=== PATIENT | female | born 1975 | race Two or more races ===

== ENCOUNTER 2023-03-01 18:41 | Emergency (ER) | payer OTHER, SELFPAY ==
--- NOTE | ~2023-03-01 | XR_ITS ---
EXAMINATION: XR ANKLE, RIGHT XR ANKLE, LEFT XR FOOT, RIGHT XR FOOT, LEFT CLINICAL INFORMATION: Bilateral ankle and foot pain. Fracture. COMPARISON: None. TECHNIQUE: AP, lateral, and mortise views of the right and left ankle were obtained. AP, oblique, and lateral views of the right and left foot. FINDINGS: Right ankle: Distal fibular ORIF with lateral stabilization plate and fixation screws. Additional orthopedic screws through the medial malleolus. No hardware fracture. No perihardware lucency to suggest loosening or infection. Chronic, healed distal fibular and medial malleolar fractures. Tibiotalar joint space narrowing with subchondral sclerosis and subchondral cystic change. Prominent marginal osteophytes. Degenerative spurring at the dorsum of the talar head. No acute fracture or dislocation. No concerning lytic or blastic osseous lesion. Mild circumferential soft tissue swelling. Left ankle: No acute fracture or dislocation. The ankle mortise is maintained. No joint space narrowing or marginal osteophytes. No osseous erosion. Mild cervical ventral soft tissue swelling. Right foot: Possible healed distal third, fourth, and fifth metatarsal fractures. No acute fracture or dislocation. Moderate joint space narrowing with marginal osteophytes at the first metatarsophalangeal joint. No osseous erosion. No abnormal soft tissue calcification. Left foot: No acute fracture or dislocation. No joint space narrowing or marginal osteophytes. No osseous erosion. No abnormal soft tissue calcification. XR/XR ankle LT min 3V IMPRESSION: RIGHT ANKLE: Distal fibular and medial malleolar ORIF without evidence of hardware complication. Chronic, healed distal fibular and medial malleolar fractures. Moderate tibiotalar osteoarthritis. Mild circumferential soft tissue swelling. LEFT ANKLE: Mild circumferential soft tissue swelling without acute osseous abnormality. RIGHT FOOT: Possible healed distal third, fourth, and fifth metatarsal fractures. Moderate first metatarsophalangeal osteoarthritis. LEFT FOOT: No acute osseous abnormality.
--- NOTE | ~2023-03-01 | XR_ITS ---
EXAMINATION: XR ANKLE, RIGHT XR ANKLE, LEFT XR FOOT, RIGHT XR FOOT, LEFT CLINICAL INFORMATION: Bilateral ankle and foot pain. Fracture. COMPARISON: None. TECHNIQUE: AP, lateral, and mortise views of the right and left ankle were obtained. AP, oblique, and lateral views of the right and left foot. FINDINGS: Right ankle: Distal fibular ORIF with lateral stabilization plate and fixation screws. Additional orthopedic screws through the medial malleolus. No hardware fracture. No perihardware lucency to suggest loosening or infection. Chronic, healed distal fibular and medial malleolar fractures. Tibiotalar joint space narrowing with subchondral sclerosis and subchondral cystic change. Prominent marginal osteophytes. Degenerative spurring at the dorsum of the talar head. No acute fracture or dislocation. No concerning lytic or blastic osseous lesion. Mild circumferential soft tissue swelling. Left ankle: No acute fracture or dislocation. The ankle mortise is maintained. No joint space narrowing or marginal osteophytes. No osseous erosion. Mild cervical ventral soft tissue swelling. Right foot: Possible healed distal third, fourth, and fifth metatarsal fractures. No acute fracture or dislocation. Moderate joint space narrowing with marginal osteophytes at the first metatarsophalangeal joint. No osseous erosion. No abnormal soft tissue calcification. Left foot: No acute fracture or dislocation. No joint space narrowing or marginal osteophytes. No osseous erosion. No abnormal soft tissue calcification. XR/XR foot LT 2V IMPRESSION: RIGHT ANKLE: Distal fibular and medial malleolar ORIF without evidence of hardware complication. Chronic, healed distal fibular and medial malleolar fractures. Moderate tibiotalar osteoarthritis. Mild circumferential soft tissue swelling. LEFT ANKLE: Mild circumferential soft tissue swelling without acute osseous abnormality. RIGHT FOOT: Possible healed distal third, fourth, and fifth metatarsal fractures. Moderate first metatarsophalangeal osteoarthritis. LEFT FOOT: No acute osseous abnormality.
--- NOTE | ~2023-03-01 | XR_ITS ---
EXAMINATION: XR ANKLE, RIGHT XR ANKLE, LEFT XR FOOT, RIGHT XR FOOT, LEFT CLINICAL INFORMATION: Bilateral ankle and foot pain. Fracture. COMPARISON: None. TECHNIQUE: AP, lateral, and mortise views of the right and left ankle were obtained. AP, oblique, and lateral views of the right and left foot. FINDINGS: Right ankle: Distal fibular ORIF with lateral stabilization plate and fixation screws. Additional orthopedic screws through the medial malleolus. No hardware fracture. No perihardware lucency to suggest loosening or infection. Chronic, healed distal fibular and medial malleolar fractures. Tibiotalar joint space narrowing with subchondral sclerosis and subchondral cystic change. Prominent marginal osteophytes. Degenerative spurring at the dorsum of the talar head. No acute fracture or dislocation. No concerning lytic or blastic osseous lesion. Mild circumferential soft tissue swelling. Left ankle: No acute fracture or dislocation. The ankle mortise is maintained. No joint space narrowing or marginal osteophytes. No osseous erosion. Mild cervical ventral soft tissue swelling. Right foot: Possible healed distal third, fourth, and fifth metatarsal fractures. No acute fracture or dislocation. Moderate joint space narrowing with marginal osteophytes at the first metatarsophalangeal joint. No osseous erosion. No abnormal soft tissue calcification. Left foot: No acute fracture or dislocation. No joint space narrowing or marginal osteophytes. No osseous erosion. No abnormal soft tissue calcification. XR/XR ankle RT 2V IMPRESSION: RIGHT ANKLE: Distal fibular and medial malleolar ORIF without evidence of hardware complication. Chronic, healed distal fibular and medial malleolar fractures. Moderate tibiotalar osteoarthritis. Mild circumferential soft tissue swelling. LEFT ANKLE: Mild circumferential soft tissue swelling without acute osseous abnormality. RIGHT FOOT: Possible healed distal third, fourth, and fifth metatarsal fractures. Moderate first metatarsophalangeal osteoarthritis. LEFT FOOT: No acute osseous abnormality.
[2023-03-01 18:45] VITALS: BP 176/103; PULSE 90; RESP 18; TEMP 37.3; O2SAT 99; BMI 27.5
--- NOTE | 2023-03-01 18:49 | ED_ITS ---
HPI - General Adult General Chief complaint: Extremity Injury, Lower Stated complaint: bi lateral ankle pain, no injury, unable to walk Time Seen by Provider: 03/02/23 01:58 Source: patient Mode of arrival: ambulatory Limitations: no limitations History of Present Illness HPI narrative: Patient is status post ORIF right ankle when she was 18 years old lately been working and standing 4 hours noticed increased pain in the right ankle no recent trauma patient was without significant pain in the past pain is getting worse for over the last 1 year Related Data Previous Rx's Medication Instructions Recorded ibuprofen 600 mg tablet 600 mg PO Q6H PRN fever or pain 03/02/23 #30 tabs Allergies Allergy/AdvReac Type Severity Reaction Status Date / Time No Known Allergies Allergy Verified 03/01/23 18:49 Review of Systems 2 Review of Systems: Yes all other systems are reviewed and are negative [facility] Social History Social History Smoked in Last 30 Days: No Use of substances other than those prescribed or required for medical reasons: No Advance Directives: No Advance Directives Information Provided: No Patient : No Physical Exam ED Vital Signs: Vital Signs - 24 hr 03/01/23 18:45 03/02/23 00:21 Temperature 99.1 F Pulse Rate 90 Respiratory Rate 18 16 Blood Pressure 176/103 H Pulse Oximetry 99 Oxygen Delivery Method Room Air BMI result Body Mass Index 27.5 Extrem Ankle/foot/toe images: 2 1. Diffuse tenderness right ankle with good range of movement no deformity neurovascular intact 2. Mild tenderness at the ankle joint no deformity neurovascular intact Course Course Course Narrative: RME: 47-year-old female history of fracture in right foot ankle presents to ED for bilateral ankle pain since last night. 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 Patient denies any blunt trauma. Medications Administered Discontinued Medications Generic Name Dose Route Start Last Admin Trade Name Freq PRN Reason Stop Dose Admin Ibuprofen 600 mg 03/02/23 02:15 03/02/23 02:33 Ibuprofen 600 Mg Tablet PO 03/02/23 02:16 600 mg ONCE ONE Administration Medical Decision Making Medical Decision Making [facility] Narrative: Patient with chronic pain post ORIF right ankle likely the cause with the arthritis setting up, advised to follow with Orthopedics, ibuprofen for pain Independent Interpretation I performed an independent interpretation of an: Plain X-Ray Radiology Impression Discussion of test interpretation with radiology: I have reviewed the radiologist's reading. Discharge Plan Discharge Clinical Impression: Ankle sprain and strain Patient Disposition: Home, Self-Care Instructions: Ankle Strain (ED) Additional Instructions: Rest , avoid standing for long hours Use crutches for ambulation Ibuprofen for pain Follow with orthopedic for further evaluation of chronic pain in the right ankle Prescriptions: New ibuprofen 600 mg tablet 600 mg PO Q6H PRN (Reason: fever or pain) Qty: 30 0RF Referrals: Jordan Shaver MD [Physician] - 2 weeks Stand Alone Forms: Work/School Release Interventions: ED Discharge Assessment Last Done: 03/02/23 02:46 Discharge Date/Time: 03/02/23 02:48
[2023-03-02 00:21] VITALS: RESP 16
--- OUTSIDE RECORDS SUMMARY | 2023-03-02 00:28 | XMS_ITS | Continuity of Care Document ---
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 Date(s): 07/19/21 - 07/19/[address] [address]- Encounter Diagnosis Abdominal pain(Final) - 07/19/21 Discharge Disposition: A-D/C Home Attending Physician: Timothy Padron DO Admitting Physician: Timothy Padron DO Referring Physician: Not on Staff, Referring MD Allergies, Adverse Reactions, Alerts Substance Reaction Severity Status Latex Active Medications No Known Medications Vital Signs Most recent to oldest [Reference Range]: 1 2 Height 163 cm (07/19/21 2:40 AM) Weight 74.35 kg (07/19/21 2:40 AM) Oxygen Saturation [94-100 %] 98 % (07/19/21 5:04 AM) 100 % (07/19/21 2:40 AM) Pulse Rate [55-90 bpm] 75 bpm (07/19/21 5:04 AM) 78 bpm (07/19/21 2:40 AM) Blood Pressure [90-138/55-84 mm Hg] 147/ 104mm Hg *H* (07/19/21 5:04 AM) 136/96mm Hg (07/19/21 2:40 AM) Respiratory Rate [16-30 br/min] 16 br/mi n (07/19/21 5:04 AM) 16 br/min (07/19/21 2:40 AM) Temperature [96.8-100.4 DegF] 97.8 DegF (07/19/21 2:40 AM) Mode of Delivery (Oxygen) Room air (07/19/21 5:04 AM) Room air (07/19/21 2:40 AM) Blood pressure sites Arm, left (07/19/21 5:04 AM) Arm, left (07/19/21 2:40 AM) Temperature Route Oral (07/19/21 2:40 AM) Dry Weight 74.35 kg (07/19/21 2:40 AM) Weight Obtained Via Patient/family state d (07/19/21 2:40 AM) Dry Weight Obtained Via Patient/family s tated (07/19/21 2:40 AM) Social History Social History Type Response Smoking Status Former smoker, quit more than 30 days ago entered on: 07/19/21 Sex
--- OUTSIDE RECORDS SUMMARY | 2023-03-02 00:28 | XMS_ITS | Continuity of Care Document ---
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 Role Phone Not on Staff, PCP Primary Care Physician Unavail able [place] [facility] [place]22 [facility] [employer] [employer] [facility] [address] [facility] [address] [facility] [facility] [place], [place] [address] Allergies, Adverse Reactions, Alerts Substance Reaction Severity Status Latex Active Medications medroxyPROGESTERone 10 mg oral tablet 1, tablet, By Mouth, Daily, # 90 tablet, Refills 0, Maintenance, 10/18/22 13:28:00 EDT, Route to Pharmacy Electronically, [id number], 163, cm, 09/03/22 11:10:00 EDT, Height, 77.6, kg, 08/27/22 10:32:00 EDT, Dry Weight Start Date: 10/18/22 Status: Ordered Problem List Condition Confirmation Course Effective Dates Status Health St atus Informant Abnormal uterine bleeding (AUB) Confirmed Active Anemia Confirmed Active Ovarian cyst, complex Confirmed Active Headache Confirmed Active Iron deficiency anemia due to chronic blood loss Confirmed Active Social History Social History Type Response Smoking Status Former smoker, quit more than 30 days ago; Other: 2020; entered on: 09/03/22 Sex Patient Care team information Care Team Personnel Name: Shabana Gimenez RN Position: S RN Member Role: Primary Care Nurse Name: Not on Staff, PCP Position: S Physician (General Medicine) Member Role: PCP Care Team Related Persons Name: TY PAZ Address: home [address] [place] [id number] Name: STEFAN WHITTEN Address: home [address] [place] [id number]
--- OUTSIDE RECORDS SUMMARY | 2023-03-02 00:28 | XMS_ITS | Continuity of Care Document ---
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 Name Role Phone Not on Staff, PCP Primary Care Physician Unavail able [place] [facility] [place]02/22 [facility] [address] [place] [id number] Allergies, Adverse Reactions, Alerts Substance Reaction Severity Status Latex Active Medications Diflucan 150 mg oral tablet 1 tablet = 150 mg, By Mouth, Once, # 1 tablet, 0 Refills, Soft Stop, 03/17/22 16:38:00 EST, Tablet,[facility]/pharmacy #[id number], Partial fill upon patient request if the prescription is for a schedule II opioid drug., 163, cm, 03/17/22 13:59:00 EST, Height, 80... Start Date: 03/17/22 Status: Ordered Social History Social History Type Response Smoking Status Former smoker, quit more than 30 days ago entered on: 07/19/21 Sex Patient Care team information Care Team Personnel Name: Not on Staff, PCP Position: S Physician (General Medicine) Member Role: PCP Care Team Related Persons Name: YT PAZ Address: home [address] [place] [id number] Name: STEFAN WHITTEN Address: home [address] [place] [id number]
--- OUTSIDE RECORDS SUMMARY | 2023-03-02 00:29 | XMS_ITS | Continuity of Care Document ---
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 Role Phone Donna Faye MD Primary Care Physician Encounter [facility] Date(s): 03/17/22 - 03/17/[address] [address]- Discharge Disposition: A-D/C Home Attending Physician: Winifred Villegas MD Admitting Physician: Winifred Villegas MD Referring Physician: Not on Staff, Referring MD Allergies, Adverse Reactions, Alerts Substance Reaction Severity Status Latex Active Medications Diflucan 150 mg oral tablet 1 tablet = 150 mg, By Mouth, Once, # 1 tablet, 0 Refills, Soft Stop, 03/17/22 16:38:00 EST, Tablet,[id number], Partial fill upon patient request if the prescription is for a schedule II opioid drug., 163, cm, 03/17/22 13:59:00 EST, Height, 80... Start Date: 03/17/22 Status: Ordered Miconazole 7 vaginal suppository 1 supp = 100 mg, Vaginally, Daily at bedtime, for 7 days, # 7 supp, 0 Refills, Acute 03/24/22 16:39:00 EST, 03/17/22 16:39:00 EST, Suppository, [id number], Partial fill upon patient request if the prescription is for a schedule II opioid drug.... Start Date: 03/17/22 Stop Date: 03/24/22 Status: Ordered Results Orders for Microbiology Reports Name Date Wet Prep 03/17/22 Microbiology Reports TEST:Wet Prep STATUS:Auth (Verified) BODY SITE: SOURCE:VAGINA COLLECTED DATE/TIME:03/17/22 3:38 PM Wet Prep SPECIMEN DESCRIPTION : VAGINAL SPECIMEN SPECIAL REQUESTS : NONE DIRECT EXAM : 1+ WHITE BLOOD CELLS NO TRICHOMONAS,YEAST,OR CLUE CELLS OBSERVED REPORT STATUS : FINAL 03/17/2022 Radiology Reports * Exam Date Time Procedure Performing Provider Status 03/17/22 4:38 PM US Pelvic Transvaginal Vale Kelly; Auth (Verified) Notes: (US Pelvic Transvaginal) Reason For Exam: Pelvic Pain;Other: RESULT: US Pelvic Transvaginal US Pelvic Transabdominal, US Pelvic Doppler Comp, US Pelvic Transvaginal Hx of Present Illness: Reports onset of cottage cheese vaginal discharge 6 days ago, used monistat at that time. States the discharge now looks different, with lower abd cramping. No new sex partners or unprotected sex.; Reason: Other:; Pelvic Pain; Clinical Question(s): TOA; Order Comment: US Pelvic Non-Ob Comp Prep COMPARISON: CT abdomen and pelvis, 03/23/2021. TECHNIQUE: Transabdominal and transvaginal pelvic ultrasound with grayscale, color Doppler, and spectral Doppler analysis. FINDINGS: UTERUS: Size: 10.0 x 4.8 x 6.3 cm, volume 159 cc. Endometrial thickness: 1.3 cm. Morphology: Somewhat heterogeneous myometrium. Likely hypoechoic intramural fibroid of the anteriorly measuring 1.5 cm. RIGHT OVARY: Size: 3.8 x 2.5 x 2.8 cm, volume 14.0 cc. Morphology: Mixed cystic and solid lesion within the right ovary measuring 2.3 x 2.1 x 1.8 cm. No significant internal blood flow by color Doppler. Normal arterial and venous waveforms. LEFT OVARY: Size: 2.6 x 2.3 x 2.2 cm, volume 7.1 cc. Morphology: Normal echotexture. No pathologic cysts or mass. Normal arterial and venous waveforms. ADNEXA: Trace free fluid in the cul-de-sac, likely physiologic. IMPRESSION: 1. Mixed cystic and solid lesion within the right ovary measuring 2.3 cm. Recommend gynecology consultation. 2. Fibroid uterus. 3. No evidence of tubo-ovarian abscess or torsion. Reference: Ronald WORRELL, et al. O-RADS US Risk Stratification and Management System: A Consensus Guideline from the ACR Ovarian-Adnexal Reporting and Data System Committee. Radiology 2020; 294:168-185. https://p ubs.rsna.org/doi/full/10.1148/radiol.8859802867 A critical result message (Yellow) has been communicated via the [employer] system on 03/17/2022 5:13 PM, Message ID [id number]. WSN: [id number] Ordering Physician: Winifred Villegas Dictated By: Pablo Zimmerman MD Dictated Date/Time: 03/17/22 5:13 pm Reviewed By: Pablo Zimmerman MD Signed By: Pablo Zimmerman MD Signed Date/Time: 03/17/22 5:13 pm Transcribed By: DAOVN Transcribed Date/Time: 03/17/22 4:59 pm * Exam Date Time Procedure Performing Provider Status 03/17/22 4:38 PM US Pelvic Doppler Comp Vale Kelly; Auth (Verified) Notes: (US Pelvic Doppler Comp) Reason For Exam: Pelvic Pain;Other: RESULT: US Pelvic Doppler Comp US Pelvic Transabdominal, US Pelvic Doppler Comp, US Pelvic Transvaginal Hx of Present Illness: Reports onset of cottage cheese vaginal discharge 6 days ago, used monistat at that time. States the discharge now looks different, with lower abd cramping. No new sex partners or unprotected sex.; Reason: Other:; Pelvic Pain; Clinical Question(s): TOA; Order Comment: US Pelvic Non-Ob Comp Prep COMPARISON: CT abdomen and pelvis, 03/23/2021. TECHNIQUE: Transabdominal and transvaginal pelvic ultrasound with grayscale, color Doppler, and spectral Doppler analysis. FINDINGS: UTERUS: Size: 10.0 x 4.8 x 6.3 cm, volume 159 cc. Endometrial thickness: 1.3 cm. Morphology: Somewhat heterogeneous myometrium. Likely hypoechoic intramural fibroid of the anteriorly measuring 1.5 cm. RIGHT OVARY: Size: 3.8 x 2.5 x 2.8 cm, volume 14.0 cc. Morphology: Mixed cystic and solid lesion within the right ovary measuring 2.3 x 2.1 x 1.8 cm. No significant internal blood flow by color Doppler. Normal arterial and venous waveforms. LEFT OVARY: Size: 2.6 x 2.3 x 2.2 cm, volume 7.1 cc. Morphology: Normal echotexture. No pathologic cysts or mass. Normal arterial and venous waveforms. ADNEXA: Trace free fluid in the cul-de-sac, likely physiologic. IMPRESSION: 1. Mixed cystic and solid lesion within the right ovary measuring 2.3 cm. Recommend gynecology consultation. 2. Fibroid uterus. 3. No evidence of tubo-ovarian abscess or torsion. Reference: Ronald WORRELL, et al. O-RADS US Risk Stratification and Management System: A Consensus Guideline from the ACR Ovarian-Adnexal Reporting and Data System Committee. Radiology 2020; 294:168-185. https://p ubs.rsna.org/doi/full/10.1148/radiol.3687233370 A critical result message (Yellow) has been communicated via the [employer]Card system on 03/17/2022 5:13 PM, Message ID [id number]. WSN: [id number] Ordering Physician: Winifred Villegas Dictated By: Pablo Zimmerman MD Dictated Date/Time: 03/17/22 5:13 pm Reviewed By: Pablo Zimmerman MD Signed By: Pablo Zimmerman MD Signed Date/Time: 03/17/22 5:13 pm Transcribed By: DAVON Transcribed Date/Time: 03/17/22 4:59 pm * Exam Date Time Procedure Performing Provider Status 03/17/22 4:38 PM US Pelvic Transabdominal Mirela Kelly ra; Auth (Verified) Notes: (US Pelvic Transabdominal) Reason For Exam: Pelvic Pain;Other: RESULT: US Pelvic Transabdominal US Pelvic Transabdominal, US Pelvic Doppler Comp, US Pelvic Transvaginal Hx of Present Illness: Reports onset of cottage cheese vaginal discharge 6 days ago, used monistat at that time. States the discharge now looks different, with lower abd cramping. No new sex partners or unprotected sex.; Reason: Other:; Pelvic Pain; Clinical Question(s): TOA; Order Comment: US Pelvic Non-Ob Comp Prep COMPARISON: CT abdomen and pelvis, 03/23/2021. TECHNIQUE: Transabdominal and transvaginal pelvic ultrasound with grayscale, color Doppler, and spectral Doppler analysis. FINDINGS: UTERUS: Size: 10.0 x 4.8 x 6.3 cm, volume 159 cc. Endometrial thickness: 1.3 cm. Morphology: Somewhat heterogeneous myometrium. Likely hypoechoic intramural fibroid of the anteriorly measuring 1.5 cm. RIGHT OVARY: Size: 3.8 x 2.5 x 2.8 cm, volume 14.0 cc. Morphology: Mixed cystic and solid lesion within the right ovary measuring 2.3 x 2.1 x 1.8 cm. No significant internal blood flow by color Doppler. Normal arterial and venous waveforms. LEFT OVARY: Size: 2.6 x 2.3 x 2.2 cm, volume 7.1 cc. Morphology: Normal echotexture. No pathologic cysts or mass. Normal arterial and venous waveforms. ADNEXA: Trace free fluid in the cul-de-sac, likely physiologic. IMPRESSION: 1. Mixed cystic and solid lesion within the right ovary measuring 2.3 cm. Recommend gynecology consultation. 2. Fibroid uterus. 3. No evidence of tubo-ovarian abscess or torsion. Reference: Ronald WORRELL, et al. O-RADS US Risk Stratification and Management System: A Consensus Guideline from the ACR Ovarian-Adnexal Reporting and Data System Committee. Radiology 2020; 294:168-185. https://p ubs.rsna.org/doi/full/10.1148/radiol.9597490305 A critical result message (Yellow) has been communicated via the [employer]Card system on 03/17/2022 5:13 PM, Message ID [id number]. WSN: [id number] Ordering Physician: Winifred Villegas Dictated By: Pablo Zimmerman MD Dictated Date/Time: 03/17/22 5:13 pm Reviewed By: Pablo Zimmerman MD Signed By: Pablo Zimmerman MD Signed Date/Time: 03/17/22 5:13 pm Transcribed By: DAVON Transcribed Date/Time: 03/17/22 4:59 pm Vital Signs Most recent to oldest [Reference Range]: 1 2 Height 163 cm (03/17/22 1:59 PM) Weight 80 kg (03/17/22 1:59 PM) Oxygen Saturation [94-100 %] 99 % (03/17/22 5:41 PM) 100 % (03/17/22 1:59 PM) Pulse Rate [55-90 bpm] 89 bpm (03/17/22 5:41 PM) 96 bpm *H* (03/17/22 1:59 PM) Blood Pressure [90-138/55-84 mm Hg] 170/ 98mm Hg *H* (03/17/22 5:41 PM) 176/101mm Hg *H* (03/17/22 1:59 PM) Respiratory Rate [16-30 br/min] 18 br/mi n (03/17/22 5:41 PM) 17 br/min (03/17/22 1:59 PM) Temperature [96.8-100.4 DegF] 98.8 DegF (03/17/22 5:41 PM) 99.3 DegF (03/17/22 1:59 PM) Mode of Delivery (Oxygen) Room air (03/17/22 5:41 PM) Room air (03/17/22 1:59 PM) Blood pressure sites Arm, left (03/17/22 5:41 PM) Arm, left (03/17/22 1:59 PM) Temperature Route Oral (03/17/22 5:41 PM) Temporal (03/17/22 1:59 PM) Dry Weight 80 kg (03/17/22 1:59 PM) Dry Weight Obtained Via Standing scale (03/17/22 1:59 PM) Social History Social History Type Response Smoking Status Former smoker, quit more than 30 days ago entered on: 07/19/21 Sex Note * Winifred Villegas MD: PERFORM, SIGN, VERIFY Event Display: Patient Education Handout Authored Date: [id number] * Winifred Villegas MD: PERFORM Event Display: Patient Education Leaflets Authored Date: [id number] Ovarian Cysts ?? [id number] Ovarian Cysts The ovaries are two small organs located on each side of the womb (uterus). They are part of the female reproductive system. Ovarian cysts are sacs filled with fluid or tissue that forms on or insidethe ovaries. Ovarian cysts are common, especially during childbearing years. There are different types of cysts.Most are harmless (benign) and go away on their own. They often cause no symptoms. If symptoms do occur, they can include mild pain or pressure in the lower belly (abdomen). Cysts that are large or break (rupture) may cause more severe pain and symptoms. In these cases, you may need hospital care or treatment, such as surgery. You may need more extensive treatment if a cyst causes an ovary to twist (called torsion) or if your healthcare provider suspects your cyst is cancerous. Keep in mind that most cysts are not cancerous, however. General care ??? To help relieve pain, your healthcare provider may recommend using zjfx-wkp-zzrvlnl pain medicine. If needed, your provider may prescribe stronger pain medicine. ??? Depending on thetype of cyst you have, your healthcare provider may advise taking control pills. These help shrink cysts in certain cases. They may also help prevent new cysts from forming. Be sure to take these medicines as directed if they are prescribed. ??? Your healthcare provider may advise you to watch your symptoms over time to see if they go away or worsen. Regular ultrasound tests may also be advised. These can help check if a cyst goes away or grows in size. ?? Follow-up care Follow up with your healthcare provider, or as advised. ?? When to get medical advice Call your healthcare provider right away if any of these occur: ??? Pain gets worse or doesn't get better with home treatment ??? Fever of 100.4??F (38??C) or higher, or as directed by your healthcare provider ??? Nausea and vomiting ??? Weakness, dizziness, or fainting ??? Abnormal vaginal bleeding ?? Last Reviewed Date: 2022 ?? [id number] [employer]. All rights reserved. This information is not intended as a substitute for professional medical care. Always follow your healthcare professional's instructions. ?? * Nelly CHAVEZ, Winifred Wiggins: PERFORM Event Display: Patient Education Leaflets Authored Date: [id number] Uterine Fibroids ?? [id number] Uterine Fibroids Fibroids??are??lumps (growths) of muscle tissue.??They can form in the wall of the uterus (womb). Fibroids are very common. They are almost always not cancer (benign).??It's not known what causes fibroids. But they may run in families. Also, changes in female hormones may cause them to grow over time. After menopause, fibroids may stop growing or shrink. Fibroids may or may not cause symptoms. This depends on many factors, such as their size, the number, and where the fibroids are. If symptoms do occur, they can include: ??? Heavy bleeding. In severe cases, this may lead to low red blood count (anemia). ??? Painful periods ??? Feeling of fullness, swelling, pressure, or pain in the lower belly (abdomen) or pelvic region ??? Low back pain ??? Frequent urination ??? Constipation ??? Pain during sex ??? Problems getting or problems during If fibroids are suspected, your healthcare provider will do an assessment to help understand the extent of the problem. This can include a health history, exam, and tests. Based on the results, treatment can then be planned, if needed. Until more details are known about your problem, you may be given guidelines similar to the home care instructions below. Home care ??? To help control pain, chko-sea-bwrwtiu pain medicine may be advised.??Take these onlyas directed by your provider. ??? If you have heavy or painful periods, keep a log of your menstrual cycle. Show the log to your provider. The information may help them determine if your symptoms arefrom fibroids or another cause. ??? Make certain lifestyle changes. This may include losing excess weight, being more active, or eating less red meat. These changes may help lower the risk of fibroids in some people. They may also help improve overall health. ?? Follow-up care Follow up with your healthcare provider as advised.??If testing was done, you???ll be told the results when they are ready. Call your provider if you have not heard anything and it is several days after the procedure or testing was done. Treatment options for fibroids may include medicines or procedures to help shrink or keep fibroids from growing.??In severe cases, surgery may be needed to remove fibroids or to remove the uterus. If you have fibroids but no symptoms, you may not need treatmentat all. But your provider may advise regular follow-up to check fibroid size and growth. ?? When to seek medical advice Call your healthcare provider right away if any of these occur: ??? Heavy bleeding or painful periods that continue or??don???t get better with treatment ??? Signs of anemia such as extreme fatigue, pale skin, shortness of breath with little exertion, or rapid heartbeat ??? Weakness, dizziness, or fainting ??? Severe pain in the pelvic or belly region ??? Swollen or enlarged belly ?? Last Reviewed Date: 2022 ?? [employer]. All rights reserved. This information is not intended as a substitute for professional medical care. Always follow your healthcare professional's instructions. ?? * Nelly CHAVEZ, Winifred Wiggins: PERFORM Event Display: Patient Education Leaflets Authored Date: [id number] Yeast Infection (Kellen Vaginal Infection) ?? [id number] Yeast Infection (Kellen Vaginal Infection) You have a??Kellen??vaginal infection. This is also known as a yeast infection. It's most often caused by a type of yeast (fungus) called??Kellen.??Kellen??is normally found in the vagina. But if it increases in number, this can lead to infection and cause symptoms. Symptoms of a yeast infection can include: ??? Clumpy or thin, white discharge, which may look like cottage cheese ??? Itching or burning ??? Burning with urination Certain factors can make a yeast infection more likely. These can include: ??? Taking certain medicines, such as antibiotics or control pills ? Diabetes??? Weak immune system A yeast infection is most often treated with antifungal medicine. This may be given as a vaginal cream or pills you take by mouth. Treatment may last for about 1 to 7 days. Women with severe or recurrent infections may need longer courses of treatment. Home care ??? If you???re prescribed medicine, be sure to use it as directed. Finish??all??of the medicine, even if your symptoms go away.??Don???t try to treat yourself using unaw-kja-jlrebyl products without talking with your healthcare provider first. They will let you know if this is a good choice for you. ??? Ask your provider what steps you can take to help reduce your risk of having a yeast infection in the future. ?? Follow-up care Follow up with your healthcare provider, or as directed. ?? When to get medical advice Call your healthcare provider right away if any of the following occur: ??? You have a fever of 100.4??F (38??C)??or higher, or as directed by your provider. ??? Your symptoms get worse, or they don???t go away within a few days of starting treatment. ??? You have new pain in the lower belly or pelvic region. ??? You have side effects that bother you or a reaction to the cream or pills you???re prescribed. ??? You or any partners you have sex with have new symptoms, such??as a rash, joint pain,or sores. ?? Last Reviewed Date: 2022 ?? [id number] [employer]. All rights reserved. This information is not intended as a substitute for professional medical care. Always follow your healthcare professional's instructions. ?? * BHSPowerscribenita , CIS S: Pablo Block MD: VERIFY Event Display: Result: Authored Date: [id number] US Pelvic Transabdominal, US Pelvic Doppler Comp, US Pelvic Transvaginal Hx of Present Illness: Reports onset of cottage cheese vaginal discharge 6 days ago, used monistat at that time. States the discharge now looks different, with lower abd cramping. No new sex partners or unprotected sex.; Reason: Other:; Pelvic Pain; Clinical Question(s): TOA; Order Comment: US Pelvic Non-Ob Comp Prep COMPARISON: CT abdomen and pelvis, 03/23/2021. TECHNIQUE: Transabdominal and transvaginal pelvic ultrasound with grayscale, color Doppler, and spectral Doppler analysis. FINDINGS: UTERUS: Size: 10.0 x 4.8 x 6.3 cm, volume 159 cc. Endometrial thickness: 1.3 cm. Morphology: Somewhat heterogeneous myometrium. Likely hypoechoic intramural fibroid of the anteriorly measuring 1.5 cm. RIGHT OVARY: Size: 3.8 x 2.5 x 2.8 cm, volume 14.0 cc. Morphology: Mixed cystic and solid lesion within the right ovary measuring 2.3 x 2.1 x 1.8 cm. No significant internal blood flow by color Doppler. Normal arterial and venous waveforms. LEFT OVARY: Size: 2.6 x 2.3 x 2.2 cm, volume 7.1 cc. Morphology: Normal echotexture. No pathologic cysts or mass. Normal arterial and venous waveforms. ADNEXA: Trace free fluid in the cul-de-sac, likely physiologic. IMPRESSION: 1. Mixed cystic and solid lesion within the right ovary measuring 2.3 cm. Recommend gynecology consultation. 2. Fibroid uterus. 3. No evidence of tubo-ovarian abscess or torsion. Reference: Ronald WORRELL, et al. O-RADS US Risk Stratification and Management System: A Consensus Guideline from the ACR Ovarian-Adnexal Reporting and Data System Committee. Radiology 2020; 294:168-185. https://p ubs.rsna.org/doi/full/10.1148/radiol.9324264396 A critical result message (Yellow) has been communicated via the GroupCard system on 03/17/2022 5:13 PM, Message ID [id number]. WSN: [id number] Ordering Physician: Winifred Villegas Dictated By: Pablo Zimmerman MD Dictated Date/Time: 03/17/22 5:13 pm Reviewed By: Pablo Zimmerman MD Signed By: Pablo Zimmerman MD Signed Date/Time: 03/17/22 5:13 pm Transcribed By: DAVON Transcribed Date/Time: 03/17/22 4:59 pm US Pelvis transvaginal * [facility]SPowerscribe , CIS S: TRANSCRIBE Pablo Zimmerman MD: VERIFY Event Display: Result: Authored Date: [id number] US Pelvic Transabdominal, US Pelvic Doppler Comp, US Pelvic Transvaginal Hx of Present Illness: Reports onset of cottage cheese vaginal discharge 6 days ago, used monistat at that time. States the discharge now looks different, with lower abd cramping. No new sex partners or unprotected sex.; Reason: Other:; Pelvic Pain; Clinical Question(s): TOA; Order Comment: US Pelvic Non-Ob Comp Prep COMPARISON: CT abdomen and pelvis, 03/23/2021. TECHNIQUE: Transabdominal and transvaginal pelvic ultrasound with grayscale, color Doppler, and spectral Doppler analysis. FINDINGS: UTERUS: Size: 10.0 x 4.8 x 6.3 cm, volume 159 cc. Endometrial thickness: 1.3 cm. Morphology: Somewhat heterogeneous myometrium. Likely hypoechoic intramural fibroid of the anteriorly measuring 1.5 cm. RIGHT OVARY: Size: 3.8 x 2.5 x 2.8 cm, volume 14.0 cc. Morphology: Mixed cystic and solid lesion within the right ovary measuring 2.3 x 2.1 x 1.8 cm. No significant internal blood flow by color Doppler. Normal arterial and venous waveforms. LEFT OVARY: Size: 2.6 x 2.3 x 2.2 cm, volume 7.1 cc. Morphology: Normal echotexture. No pathologic cysts or mass. Normal arterial and venous waveforms. ADNEXA: Trace free fluid in the cul-de-sac, likely physiologic. IMPRESSION: 1. Mixed cystic and solid lesion within the right ovary measuring 2.3 cm. Recommend gynecology consultation. 2. Fibroid uterus. 3. No evidence of tubo-ovarian abscess or torsion. Reference: Ronald WORRELL, et al. O-RADS US Risk Stratification and Management System: A Consensus Guideline from the ACR Ovarian-Adnexal Reporting and Data System Committee. Radiology 2020; 294:168-185. https://p ubs.rsna.org/doi/full/10.1148/radiol.4756614652 A critical result message (Yellow) has been communicated via the [employer] system on 03/17/2022 5:13 PM, Message ID [id number]. WSN: [id number] Ordering Physician: Winifred Villegas Dictated By: Pablo Zimmerman MD Dictated Date/Time: 03/17/22 5:13 pm Reviewed By: Pablo Zimmerman MD Signed By: Pablo Zimmerman MD Signed Date/Time: 03/17/22 5:13 pm Transcribed By: DAVON Transcribed Date/Time: 03/17/22 4:59 pm US Pelvis * [facility]erscribe , CIS S: TRANSCRIBE Pablo Zimmerman MD: VERIFY Event Display: Result: Authored Date: [id number] US Pelvic Transabdominal, US Pelvic Doppler Comp, US Pelvic Transvaginal Hx of Present Illness: Reports onset of cottage cheese vaginal discharge 6 days ago, used monistat at that time. States the discharge now looks different, with lower abd cramping. No new sex partners or unprotected sex.; Reason: Other:; Pelvic Pain; Clinical Question(s): TOA; Order Comment: US Pelvic Non-Ob Comp Prep COMPARISON: CT abdomen and pelvis, 03/23/2021. TECHNIQUE: Transabdominal and transvaginal pelvic ultrasound with grayscale, color Doppler, and spectral Doppler analysis. FINDINGS: UTERUS: Size: 10.0 x 4.8 x 6.3 cm, volume 159 cc. Endometrial thickness: 1.3 cm. Morphology: Somewhat heterogeneous myometrium. Likely hypoechoic intramural fibroid of the anteriorly measuring 1.5 cm. RIGHT OVARY: Size: 3.8 x 2.5 x 2.8 cm, volume 14.0 cc. Morphology: Mixed cystic and solid lesion within the right ovary measuring 2.3 x 2.1 x 1.8 cm. No significant internal blood flow by color Doppler. Normal arterial and venous waveforms. LEFT OVARY: Size: 2.6 x 2.3 x 2.2 cm, volume 7.1 cc. Morphology: Normal echotexture. No pathologic cysts or mass. Normal arterial and venous waveforms. ADNEXA: Trace free fluid in the cul-de-sac, likely physiologic. IMPRESSION: 1. Mixed cystic and solid lesion within the right ovary measuring 2.3 cm. Recommend gynecology consultation. 2. Fibroid uterus. 3. No evidence of tubo-ovarian abscess or torsion. Reference: Ronald WORRELL, et al. O-RADS US Risk Stratification and Management System: A Consensus Guideline from the ACR Ovarian-Adnexal Reporting and Data System Committee. Radiology 2020; 294:168-185. https://p ubs.rsna.org/doi/full/10.1148/radiol.0231997697 A critical result message (Yellow) has been communicated via the [employer] system on 03/17/2022 5:13 PM, Message ID [id number]. WSN: [id number] Ordering Physician: Winifred Villegas Dictated By: Pablo Zimmerman MD Dictated Date/Time: 03/17/22 5:13 pm Reviewed By: Pablo Zimmerman MD Signed By: Pablo Zimmerman MD Signed Date/Time: 03/17/22 5:13 pm Transcribed By: DAVON Transcribed Date/Time: 03/17/22 4:59 pm Patient Care team information Care Team Personnel Name: Donna Faye MD Position: [facility] Infectious Disease MD Member Role: PCP Address: Address: [address] [place] [address] [address] [place] [address]- Name: Agueda Irizarry Position: [facility] ED OA Name: Winifred Villegas MD Position: [facility] ED Medicine MD Member Role: Admitting Physician Address: Address: [address] [place] [address] [place] [address]- Name: Sincere Dickey RN Position: [facility] ED RN W/OE and Tasks Member Role: Patient Care Provider Care Team Related Persons Name: STEFAN WHITTEN Address: home [address] [place] [id number]
--- OUTSIDE RECORDS SUMMARY | 2023-03-02 00:29 | XMS_ITS | Continuity of Care Document ---
Author Name Unknown Organization [facility] ter Address [address] [place] [address]- Care Team Providers Care Roll Form Operator Name Role Phone Not on Staff, PCP Primary Care Physician Unavail able Encounter [facility] Date(s): 07/23/22 - 09/01/[address] [address] Attending Physician: Antonio Vasquez DO Admitting Physician: Antonio Vasquez DO Referring Physician: Antonio Vasquez DO Allergies, Adverse Reactions, Alerts Substance Reaction Severity Status Latex Active Medications metroNIDAZOLE 500 mg oral tablet 1 tablet = 500 mg, By Mouth, Every 12 hours, for 7 days, # 14 tablet, 0 Refills, Acute 09/03/22 11:28:00 EDT, 08/27/22 11:28:00 EDT, Tablet, [id number], Partial fill upon patient request if the prescription is for a schedule II opioid drug., 1... Start Date: 08/27/22 Stop Date: 09/03/22 Status: Ordered Provera 10 mg oral tablet 10 mg, 1, tablet, By Mouth, Daily, # 90 tablet, Refills 0, Tot. Refills 0, Maintenance, 07/20/22 11:10:00 EDT, Route to Pharmacy Electronically, [id number], Partial fill upon patient request if the prescription is for a schedule II opioid drug... Start Date: 07/20/22 Stop Date: 10/18/22 Status: Ordered Problem List Condition Confirmation Course Effective Dates Status Health St atus Informant Abnormal uterine bleeding (AUB) Confirmed Active Anemia Confirmed Active Ovarian cyst, complex Confirmed Active Headache Confirmed Active Social History Social History Type Response Smoking Status Former smoker, quit more than 30 days ago entered on: 07/19/21 Sex Patient Care team information Care Team Personnel Name: Shabana Gimenez RN Position: [facility] RN Member Role: Primary Care Nurse Name: Not on Staff, PCP Position: [facility] Physician (General Medicine) Member Role: PCP Care Team Related Persons Name: SHANROSA HEMANTHABDON Address: home [address] [place] [id number] Name: STEFAN WHITTEN Address: home [address] [address]
--- OUTSIDE RECORDS SUMMARY | 2023-03-02 00:29 | XMS_ITS | Continuity of Care Document ---
Author Name Unknown Organization [facility] Address [address] [place] [address]- Care Team Providers Care Library Services Coordinator Name Role Phone Not on Staff, PCP Primary Care Physician Unavail able Encounter [facility] Date(s): 03/23/21 - 03/23/[address] [address]- Discharge Disposition: A-D/C Home Attending Physician: Mono Lee MD Admitting Physician: Mono Lee MD Referring Physician: Not on Staff, Referring MD Allergies, Adverse Reactions, Alerts Substance Reaction Severity Status Latex Active Medications cephalexin monohydrate 500 mg oral capsule 1 capsule = 500 mg, By Mouth, 2 times a day, for 7 days, # 14 capsule, 0 Refills, Acute 03/30/21 13:43:00 EST, 03/23/21 13:43:00 EST, Capsule, [id number], Partial fill upon patient request ifthe prescription is for a schedule II opioid drug.,... Start Date: 03/23/21 Stop Date: 03/30/21 Status: Ordered Flomax 0.4 mg oral capsule 0.4 mg, 1, capsule, By Mouth, Daily, # 14 capsule, Refills 0, Tot. Refills 0, Maintenance, 03/23/2212:44:00 EST, Route to Pharmacy Electronically, [facility] #[id number], Partial fill upon patient request if the prescription is for a schedule II opioid d... Start Date: 03/23/21 Stop Date: 04/06/21 Status: Ordered ibuprofen 600 mg oral tablet 600 mg, 1, tablet, By Mouth, 3 times a day, PRN, for 30 days, with food or milk, # 90 tablet, Refills 0, Tot. Refills 0, Acute 04/22/21 13:44:00 EST, Pain , Moderate, 03/23/21 13:44:00 EST, Route to Pharmacy Electronically, [facility] #[id number], Partial... Start Date: 03/23/21 Stop Date: 04/22/21 Status: Ordered ondansetron 4 mg oral tablet, disintegrating 1 tablet = 4 mg, By Mouth, Every 8 hours, PRN Nausea & Vomiting, for 7 days, # 20 tablet, 0 Refills, Acute 03/30/21 13:44:00 EST, 03/23/21 13:44:00 EST, Tablet, [facility] #[id number], Partial fill upon patient request if the prescription is for a schedul... Start Date: 03/23/21 Stop Date: 03/30/21 Status: Ordered oxyCODONE 5 mg oral tablet 5 mg, 1, tablet, By Mouth, Every 6 hours, PRN, for 5 days, # 10 tablet, Refills 0, Tot. Refills 0, Acute 03/28/21 13:44:00 EST, Pain , Severe, 03/23/21 13:44:00 EST, Route to Pharmacy Electronically,[facility]/pharmacy #[id number], Partial fill upon patient reque... Start Date: 03/23/21 Stop Date: 03/28/21 Status: Ordered Vital Signs Most recent to oldest [Reference Range]: 1 2 Height 163 cm (03/23/21 11:42 AM) Weight 74.3 kg (03/23/21 11:42 AM) Oxygen Saturation [94-100 %] 100 % (03/23/21 1:52 PM) 100 % (03/23/21 11:42 AM) Pulse Rate [55-90 bpm] 84 bpm (03/23/21 1:52 PM) 84 bpm (03/23/21 11:42 AM) Blood Pressure [90-138/55-84 mm Hg] 143/ 107mm Hg *H* (03/23/21 1:52 PM) 173/97mm Hg *H* (03/23/21 11:42 AM) Respiratory Rate [16-30 br/min] 16 br/mi n (03/23/21 1:52 PM) 18 br/min (03/23/21 11:42 AM) Temperature [96.8-100.4 DegF] 99.0 DegF (03/23/21 1:52 PM) 97.6 DegF (03/23/21 11:42 AM) Mode of Delivery (Oxygen) Room air (03/23/21 1:52 PM) Room air (03/23/21 11:42 AM) Blood pressure sites Arm, left (03/23/21 1:52 PM) Arm, right (03/23/21 11:42 AM) Temperature Route Temporal (03/23/21 1:52 PM) Oral (03/23/21 11:42 AM) Dry Weight 74.3 kg (03/23/21 11:42 AM) Weight Obtained Via Standing scale (03/23/21 11:42 AM) Dry Weight Obtained Via Standing scale (03/23/21 11:42 AM) Social History Social History Type Response Tobacco Use: 4 or less cigar ettes(less than 1/4 pack)/day in last 30 days. Sex
--- OUTSIDE RECORDS SUMMARY | 2023-03-02 00:29 | XMS_ITS | Continuity of Care Document ---
Author Name Unknown Organization [facility] Address [address] [place] [address]- Care Team Providers Care Chain Sales Consultant Name Role Phone Not on Staff, PCP Primary Care Physician Unavail able Encounter [facility] Date(s): 07/12/21 - 07/12/[address] [address]- Discharge Disposition: A-D/C Home Attending Physician: Tariq Nielson MD Admitting Physician: Tariq Nielson MD Referring Physician: Not on Staff, Referring MD Allergies, Adverse Reactions, Alerts Substance Reaction Severity Status Latex Active Medications No Known Medications Results Radiology Reports * Exam Date Time Procedure Performing Provider Status 07/12/21 1:35 PM Ankle Min 3 Views Right Soliz , Thuthao T; Auth (Verified) Notes: (Ankle Min 3 Views Right) Reason For Exam: Pain RESULT: Ankle Min 3 Views Right Ankle Min 3 Views Right Hx of Present Illness: R ankle pain since tuesday after falling down the stairs, CSM intact, unable to bear weight,; Reason: Pain; Clinical Question(s): Fracture COMPARISON: Prior radiographs the right ankle dated September 19, 2020. FINDINGS: Patient has undergone prior right fibular plate and screw fixation and screw fixation of the medialmalleolus with stable appearance of the hardware when compared with the prior study without complication. Tibiotalar degenerative change has progressed slightly compared with the prior study, with similar subchondral sclerosis and cyst formation and slightly worsened joint space narrowing. No fracture is identified. Soft tissues are unremarkable. IMPRESSION: 1. No fracture identified. 2. Slightly worsening tibiotalar degenerative changes compared with the prior study. WSN: [id number] Ordering Physician: Ruddy Martell Dictated By: Luiz Crocker MD Dictated Date/Time: 07/12/21 1:45 pm Reviewed By: Luiz Crocker MD Signed By: Luiz Crocker MD Signed Date/Time: 07/12/21 1:45 pm Transcribed By: DAVON Transcribed Date/Time: 07/12/21 1:43 pm Vital Signs Most recent to oldest [Reference Range]: 1 2 Height 162 cm (07/12/21 1:15 PM) 162 cm (07/12/21 1:14 PM) Weight 72.7 kg (07/12/21 1:15 PM) 72.7 kg (07/12/21 1:14 PM) Oxygen Saturation [94-100 %] 100 % (07/12/21 1:14 PM) Pulse Rate [55-90 bpm] 94 bpm *H* (07/12/21 1:14 PM) Body Mass Index [18.5-24.99] 27.7 *H* (07/12/21 1:14 PM) Blood Pressure [90-138/55-84 mm Hg] 141/ 75mm Hg *H* (07/12/21 1:14 PM) Respiratory Rate [16-30 br/min] 20 br/mi n (07/12/21 1:14 PM) Temperature [96.8-100.4 DegF] 98.2 DegF (07/12/21 1:14 PM) Mode of Delivery (Oxygen) Room air (07/12/21 1:14 PM) Temperature Route Oral (07/12/21 1:14 PM) Dry Weight 72.7 kg (07/12/21 1:15 PM) 72.7 kg (07/12/21 1:14 PM) Social History Social History Type Response Tobacco Use: 4 or less cigar ettes(less than 1/4 pack)/day in last 30 days. Sex
[2023-03-02] MEDS: Ibuprofen 600 MG TABLET PO (02:33)
== END 2023-03-02 02:48 | disposition home or self-care (01) ==
PROVIDERS: Emergency Provider Internal Medicine
DX: S93.401A Sprain of unspecified ligament of right ankle, initial encounter (principal); S96.911A Strain of unspecified muscle and tendon at ankle and foot level, right foot, initial encounter; X58.XXXA Exposure to other specified factors, initial encounter; Y93.9 Activity, unspecified; Y92.9 Unspecified place or not applicable; Y99.9 Unspecified external cause status
CPT/HCPCS: 73600; 73610; 73620; 99283; 99284

== ENCOUNTER 2023-04-01 08:30 | Outpatient (AMB) | payer OTHER, SELFPAY ==
--- NOTE | 2023-04-01 08:51 | A.OFFVIS_ITS ---
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 Patient reports at around age 21 she had an ORIF of right ankle. States pain is worse after a shift at work, states causes her to limp and difficult to walk. She is now having pain in her left ankle that she feels is from over compensation. Denies injury. 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 She is status post ORIF of the right ankle approximately 20 years ago. She states after the surgery she did notice some ongoing stiffness and pain with prolonged standing. 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 She feels as though most of her pain is within the joint itself. She does not express much pain along where the hardware is unless she bumps it on something. [facility] Surgical History (Updated 04/01/23 @ 08:53 by VENKAT Paris) History of open reduction and internal fixation (ORIF) procedure Social History (Updated 04/01/23 @ 08:53 by VENKAT Paris) Patient Tobacco Use Status: Never used Tobacco Current occupational status: employed Current occupation: [employer] Review of Systems Const All systems reviewed & are unremarkable except as noted in HPI and below Physical Exam Vital Signs: BMI result Body Mass Index 27.5 Const General: cooperative and no acute distress Orientation/consciousness: patient oriented x3 Resp Effort & Inspection: normal respiratory effort and able to speak in complete sentences Cardio Peripheral pulses: Peripheral pulses 2+ throughout Neuro General: patient oriented x3 Extrem Other: Right ankle normal to inspection. Surgical scars are present and well healed. There is no swelling around the joint. She has no specific tenderness to palpation however there is a prominent screw noted on the distal aspect of the lateral malleolar plate. No evidence of skin breakdown along the screw. She has full ankle range of motion without crepitus or laxity. She has weakness with EHL activation on the right when compared to the contralateral side. Neurovascularly intact. Results Reviewed Results Reviewed: X-rays of the right ankle obtained on 03/01/2023 show intact orthopedic hardware without signs of loosening. There is evidence of arthritis within the ankle joint. Ankle mortise is intact. Assessment & Plan Assessment & Plan (1) Secondary osteoarthritis, right ankle and foot: Code(s): M19.271 - Secondary osteoarthritis, right ankle and foot (2) Painful orthopaedic hardware: Code(s): T84.84XA - Pain due to internal orthopedic prosthetic devices, implants and grafts, initial encounter Plan We discussed options which include physical therapy and bracing. She was fit for a lace-up ankle brace today which she will wear with work in any type of strenuous or impact activity. I discussed the benefits of anti-inflammatories and Tylenol to help with acute flare ups. If she continues to have discomfort in worsening pain over time especially over the hardware she can return to see me to discuss potential removal of hardware otherwise she will follow-up as needed. Orders: Orders PT Evaluation and Treatment Today M19.271 - Secondary osteoarthritis, right ankle and foot, T84.84XA - Pain due to internal orthopedic prosthetic devices, implants and grafts, initial encounter Coding Level of Care Code New Pt Level 3 ([address]406) Diagnoses Secondary osteoarthritis, right ankle and foot M19.271 Painful orthopaedic hardware T84.84XA
[2023-04-01 09:03] VITALS: BMI 27.5
== END 2023-04-01 09:29 | disposition home or self-care (01) ==
PROVIDERS: Visit Provider Physician Assistant
DX: M19.271 Secondary osteoarthritis, right ankle and foot (principal); T84.84XA Pain due to internal orthopedic prosthetic devices, implants and grafts, initial encounter
CPT/HCPCS: 99203

== ENCOUNTER → 2023-04-01 08:30 | Outpatient (BNVA) | payer OTHER, SELFPAY | PROVIDERS: Visit Provider Physician Assistant | DX: T84.84XA Pain due to internal orthopedic prosthetic devices, implants and grafts, initial encounter (principal); M19.271 Secondary osteoarthritis, right ankle and foot | CPT/HCPCS: 99202 ==

== ENCOUNTER 2023-04-26 09:22 | Outpatient (RCR) | payer OTHER, SELFPAY ==
--- NOTE | 2023-04-26 17:30 | MHC.PT.EP ---
[facility] Office [place] Office [place] Office [address] [phone] F: [phone] F: [phone] F: [phone] F: [phone] Physical Therapy Plan of Care Date of Evaluation: 04/26/23 Date of Surgery: Diagnosis: Secondary osteoarthritis, right ankle and foot M19.271, Painful orthopaedic hardware T84.84XA Assessment: Pt is a 47 y/o female referred to PT for eval and treat for Secondary osteoarthritis of right ankle and foot, Painful orthopedic hardware who reports initial injury > 25 years ago with R ankle Fx and ORIF and her condition is resulting in decreased tolerance for negotiating stairs, walking and standing for duration, performing fitness activities and squatting activities secondary to decreased R ankle ROM and strength, decreased balance, Hx of ORIF, gait abnormality and pain. Pt is deemed an appropriate candidate to receive skilled PT services to address their physical impairments in order to improve their functional ability. Frequency and Duration: The patient will be seen 2 x/ wk x 4 wks. Short Term Goals: Initiate home program. Improve baseline pain with activity to < 6/10; initial: 1-8/10. Residential Goals: I with home program. Descends stairs with reciprocal fashion; initial: non reciprocal and compensated. Improve LEFI outcome by at least 9 points. Pt will be able to walk 1 mile with at most a little bit of difficulty; initial: Quite a bit of difficulty. Treatment Plan: Modalities to reduce pain, spasms and effusion. Manual therapy to restore motion and function. Therapeutic exercise to improve strength and flexibility. Neuromuscular re-education for posture and balance. Therapeutic activities to return to functional activities of daily living. Electronically signed by: Carlos Sawant PT. Please sign and return to therapist. Thank you for your referral.
--- NOTE | 2023-08-02 14:58 | MHC.PT.DC ---
[facility] [place] [facility] [place] Office [place] Office [address] [facility] [phone] F: [phone] F: [phone] F: [phone] F: [phone] Physical Therapy Discharge Report Diagnosis: Secondary osteoarthritis, right ankle and foot M19.271, Painful orthopaedic hardware T84.84XA Date of Surgery: Date of Evaluation: 04/26/23 Date of Discharge: 08/02/23 Treatments to Date: 1 Cancellations to Date: No Shows to Date: Discharge Status: Discharge Summary: Pt did not trial PT after eval. Electronically signed by: Carlos Sawant PT. Please sign and return to therapist. Thank you for your referral.
== END 2023-08-02 14:57 | disposition home or self-care (01) ==
LOC: HO.PT 09:22
PROVIDERS: PCP Internal Medicine; Visit Provider Physician Assistant
DX: M19.271 Secondary osteoarthritis, right ankle and foot (principal); T84.84XA Pain due to internal orthopedic prosthetic devices, implants and grafts, initial encounter
CPT/HCPCS: 97110; 97161

== ENCOUNTER 2023-07-11 09:29 | Outpatient (AMB) | payer OTHER, SELFPAY ==
--- NOTE | 2023-07-11 09:40 | A.OFFVIS_ITS ---
Vital Signs 07/11/23 09:48 Height 5 ft 4 in Weight 160 lb BMI 27.5 Intake Visit Reasons: osteoarthritis; right ankle and foot Intake Note: Wanda a 47 year old female presents today for a follow up of right ankle OA. Patient reports she has been resting her ankle over the weekend which helped. She expresses that she went to PT one time which made her pain worse and made her call out of work. Last visit on 04/01/23 states if she continues to have ongoing pain, she should follow up to discuss DIPAK. Allergies latex Allergy (Verified 07/11/23 09:47) Unknown HPI HPI osteoarthritis; right ankle and foot: Details: 48-year-old female who returns to the office today for a follow-up of right ankle pain. She continues to have pain and experiences locking in her ankle. She attended 1 physical therapy session that worsened her pain and made her to call out of work. She has been resting her ankle over the weekend with benefits. She takes ibuprofen for her pain with benefits. 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 Surgical scars are present and well healed. There is no swelling around the joint. She has no specific tenderness to palpation however there is a prominent screw noted on the distal aspect of the lateral malleolar plate. No evidence of skin breakdown along the screw. She has full ankle range of motion without crepitus or laxity. She has weakness with EHL activation on the right when compared to the contralateral side. Neurovascularly intact. Assessment & Plan Assessment & Plan (1) Secondary osteoarthritis, right ankle and foot: Code(s): M19.271 - Secondary osteoarthritis, right ankle and foot Category: Medical (2) Painful orthopaedic hardware: Code(s): T84.84XA - Pain due to internal orthopedic prosthetic devices, implants and grafts, initial encounter Category: Medical Plan We discussed options which include continued conservative treatment vs surgical intervention. She was given a prescription of ibuprofen and a work note to reduce work 3 days a week until she sees me back in 4 weeks. A referral to foot and ankle specialist was also given to further evaluate the ankle joint and determine the need for an which she is content with. Orders: Referrals Orthopedics Referral M19.271 - Secondary osteoarthritis, right ankle and foot, T84.84XA - Pain due to internal orthopedic prosthetic devices, implants and grafts, initial encounter Medications: New ibuprofen 600 mg PO Q8H PRN 90 tabs 3RF pain 30 days Patient Instructions: Scribed for Olga Rosales PA-C, by Roberth Georges medical physicist, on 07/11/2023 at 9:45 AM EST.? I, Olga Rosales PA-C, have personally reviewed and agree with the information entered by the scribe. Coding Level of Care Code Est Pt Level 3 (76971) Diagnoses Secondary osteoarthritis, right ankle and foot M19.271 Painful orthopaedic hardware T84.84XA
[2023-07-11 09:48] VITALS: BMI 27.5
== END 2023-07-11 10:22 | disposition home or self-care (01) ==
PROVIDERS: PCP Internal Medicine; Visit Provider Physician Assistant
DX: M19.271 Secondary osteoarthritis, right ankle and foot (principal); T84.84XA Pain due to internal orthopedic prosthetic devices, implants and grafts, initial encounter
CPT/HCPCS: 99213

== ENCOUNTER → 2023-07-11 09:29 | Outpatient (BNVA) | payer OTHER, SELFPAY | PROVIDERS: PCP Internal Medicine; Visit Provider Physician Assistant | DX: M19.271 Secondary osteoarthritis, right ankle and foot (principal); T84.84XD Pain due to internal orthopedic prosthetic devices, implants and grafts, subsequent encounter | CPT/HCPCS: 99212 ==